=== PATIENT | male | born 1975 | race American Indian/Alaskan Native ===

== ENCOUNTER 2016-09-23 09:42 | Day surgery (SDC) | payer OTHER, MEDICAID ==
[2016-09-21 18:09] VITALS: BMI 40.3
[2016-09-23] MEDS ORDERED: EPINEPHrine 1 mg/ml (1:1000) Inj ONE ×2 (11:17→12:41)
[2016-09-23] MEDS ORDERED: Bupivacaine HCl 0.25% PF (30 ml) Inj ONE (11:18)
[2016-09-23] MEDS ORDERED: Iohexol 300 10 ML ONE (11:33)
[2016-09-23] MEDS ORDERED: Propofol 10 mg/ml Inj (20 ML) ONE (11:39)
[2016-09-23] MEDS ORDERED: Midazolam 2 MG/2 ML VIAL ONE ×2 (11:39→11:40)
[2016-09-23] MEDS ORDERED: Etomidate 20 mg/10ml Inj IV ONE (11:40)
[2016-09-23] MEDS ORDERED: Lactated Ringer's 1,000 ML IV ONE ×2 (11:45→13:36)
[2016-09-23] MEDS ORDERED: Lidocaine 1% PF (5ml) Amp INJ ONE (12:05)
[2016-09-23] MEDS ORDERED: EPINEPHrine 1 mg/ml (1:1000) Inj IV ONE (12:05)
[2016-09-23] MEDS ORDERED: MethylPREDNISolone Depo 40 mg/ml Inj IM ONE (12:05)
[2016-09-23] MEDS ORDERED: Bupivacaine HCl 0.25% PF (30 ml) Inj IJ ONE (12:05)
[2016-09-23] MEDS ORDERED: Lidocaine 1% 20 MG/2 ML PF AMP ONE (12:42)
[2016-09-23] MEDS ORDERED: MethylPREDNISolone Depo 40 mg/ml Inj ONE (13:10)
[2016-09-23] MEDS ORDERED: Lidocaine 5% Patch TD SCH (13:15)
[2016-09-23] MEDS ORDERED: Liquid Adhesive TOP ONE (13:15)
[2016-09-23] MEDS ORDERED: Lactated Ringer's 1,000 ML IV SCH (13:41)
[2016-09-23] MEDS ORDERED: HYDROmorphone 0.5 mg/0.5 ml ISec IVP PRN (13:41)
[2016-09-23] MEDS ORDERED: HYDROmorphone 0.5 mg/0.5 ml ISec ONE (13:59)
[2016-09-23] MEDS ORDERED: HYDROmorphone 0.5 mg/0.5 ml ISec IVP ONE (14:35)
--- NOTE | 2016-09-23 14:52 | RAD ---
PROCEDURE: Intraoperative Fluoroscopy. HISTORY: RIGHT LUMBAR TRANSECTION OF SPINAL NERVE FINDINGS: Fluoroscopic assistance provided. . Please refer to the operative report from.
[2016-09-23 16:35] VITALS: RESP 18
[2016-09-23 17:27] VITALS: BP 140/80; PULSE 78; TEMP 97.2; O2SAT 99
== END 2016-09-23 17:25 | disposition home or self-care (01) ==
LOC: H.OPSURG 09:42
PROVIDERS: ATTEND Anesthesiology
DX: M12.58 Traumatic arthropathy, other specified site (principal); M54.5 Low back pain; J45.909 Unspecified asthma, uncomplicated; E11.9 Type 2 diabetes mellitus without complications; I10 Essential (primary) hypertension; G47.30 Sleep apnea, unspecified